=== PATIENT | female | born 1980 | race African-American/Black ===

== ENCOUNTER 2018-02-06 11:20 | Emergency (ER) | payer MEDICAID, OTHER ==
[~2018-02-06] VITALS: Ht 162.6 cm; Wt 77.0 kg
[~2018-02-06 11:20] MED LIST: BACT800T5 PO; GLYB1TAB51 PO; LISI-590 PO; METF-324 PO; ZOFR4TAB3 SL
[2018-02-06 11:35] VITALS: BP 133/86; PULSE 119; RESP 15; TEMP 99.1; O2SAT 98
[2018-02-06 13:12] VITALS: TEMP 102.2
--- NOTE | 2018-02-06 13:14 | RADRPT ---
EXAM DATE/TIME: 02/06/2018 12:44 [place] COMPARISON: No previous studies available for comparison. INDICATIONS : Chest pain from coughing after inhaling burning plastic fumes. MEDICAL HISTORY : None. SURGICAL HISTORY : None. ENCOUNTER: Initial ACUITY: 2 weeks PAIN SCORE: 4/10 LOCATION: Bilateral chest FINDINGS: PA and lateral views of the chest demonstrate the lungs to be symmetrically aerated without evidence of mass, infiltrate or effusion. The cardiomediastinal contours are unremarkable. Osseous structure s are intact with a mild S-shaped scoliosis of the thoracolumbar spine. CONCLUSION: No acute cardiopulmonary process. Lungs are clear. Juaquin Tran MD on February 06, 2018 at 13:05 Board Certified Radiologist. This report was verified electronically.
[2018-02-06] MEDS ORDERED: GLYB5TAB3 PO (13:17)
[2018-02-06] MEDS ORDERED: LISI10TA3 PO (13:17)
[2018-02-06] MEDS ORDERED: LOVA10TA PO (13:17)
[2018-02-06] MEDS ORDERED: METF500T PO (13:17)
[2018-02-06] MEDS ORDERED: ZITHTAB PO (13:21)
[2018-02-06] MEDS ORDERED: GUAISYP5 PO (13:21)
--- NOTE | 2018-02-06 13:21 | PD ---
HPI Chief Complaint: Cold / Flu Symptoms Time Seen by Provider: 13:10 Travel History International Travel<30 days: No Contact w/Intl Traveler<30days: No Traveled to known affect area: No History of Present Illness HPI Patient comes in complaining of runny nose, cough over the last 2 days, productive of yellowish sputum. And over the last night or so she has developed sore throat. Patient denies any fever rash headache neck pain chest pain back pain flank pain or abdominal pain. No known drug allergy Past medical history significant for diabetes, hypertension, and hypercholesterolemia. All of which are uncontrolled with medications PFSH Past Medical History Diabetes: Yes Patient Takes Glucophage: No Diminished Hearing: No ?: Not LMP: 01/2018 Past Surgical History Tonsillectomy: Yes Social History Alcohol Use: No Tobacco Use: No Substance Use: No Allergies-Medications (Allergen,Severity, Reaction): Coded Allergies: No Known Allergies (Unverified Adverse Reaction, Unknown, 02/06/18) Reported Meds & Prescriptions Reported Meds & Active Scripts Active Guaiatussin AC Liq (Guaifenesin-Codeine Liq) 100-10 Mg/5 Ml Syrp 10 Ml PO Q6H PRN Zithromax Z-Jake (Azithromycin) 250 Mg Dspk 250 Mg PO DIRECTED 500 MG (2 tabs) day 1, then 1 tab days 2-5. Reported Lovastatin 10 Mg Tab 10 Mg PO DAILY Glyburide 5 Mg Tab 5 Mg PO DAILY Take with meals at the same time each day Lisinopril 10 Mg Tab 10 Mg PO DAILY Metformin (Metformin HCl) 500 Mg Tab 500 Mg PO TIDPC Review of Systems General / Constitutional: No: Fever Eyes: No: Visual changes HENT: No: Headaches Cardiovascular: No: Chest Pain or Discomfort Respiratory: Positive: Cough Gastrointestinal: No: Abdominal Pain Genitourinary: No: Dysuria Musculoskeletal: No: Pain Skin: No Rash Neurologic: No: Weakness Psychiatric: No: Depression Endocrine: No: Polydipsia Hematologic/Lymphatic: No: Easy Bruising Physical Exam Narrative GENERAL: SKIN: Warm and dry. HEAD: Atraumatic. Normocephalic. EYES: Pupils equal and round. No scleral icterus. No injection or drainage. ENT: No nasal bleeding or discharge. Mucous membranes pink and moist. NECK: Trachea midline. No JVD. CARDIOVASCULAR: Regular rate and rhythm. RESPIRATORY: No accessory muscle use. scattered ronchi appreciated with excellent tidal volume GASTROINTESTINAL: Abdomen soft, non-tender, nondistended. MUSCULOSKELETAL: Extremities without clubbing, cyanosis, or edema. No obvious deformities. NEUROLOGICAL: Awake and alert. No obvious cranial nerve deficits. Motor grossly within normal limits. Five out of 5 muscle strength in the arms and legs. Normal speech. PSYCHIATRIC: Appropriate mood and affect; insight and judgment normal. Data Data Last Documented VS Vital Signs Date Time Temp Pulse Resp B/P (MAP) Pulse Ox O2 Delivery O2 Flow Rate FiO2 02/06/18 13:12 102.2 02/06/18 11:35 119 15 133/86 (102) 98 Orders Orders Group A Rapid Strep Screen (02/06/18 11:38) Chest, Pa & Lat (02/06/18 11:38) Strep Culture (Group A) (02/06/18 11:49) MDM Medical Decision Making Medical Screen Exam Complete: Yes Emergency Medical Condition: Yes Medical Record Reviewed: Yes Differential Diagnosis Strep versus bronchitis versus pneumonia Narrative Course Strep test is negative Chest x-ray is negative for any consolidation consistent with pneumonia Diagnosis Primary Impression: Acute bronchitis Patient Instructions: Acute Bronchitis (ED), General Instructions Scripts Guaifenesin-Codeine Liq (Guaiatussin AC Liq) 100-10 Mg/5 Ml Syrp 10 ML PO Q6H Y for cough, #180 ML Prov: Clemente Thibodeaux MD 02/06/18 Azithromycin (Zithromax Z-Jake) 250 Mg Dspk 250 MG PO DIRECTED for Infection, #1 DSPK 0 Refills 500 MG (2 tabs) day 1, then 1 tab days 2-5. Prov: Clemente Thibodeaux MD 02/06/18 Disposition: 01 DISCHARGE HOME Condition: Stable Clemente Thibodeaux MD Feb 06, 2018 13:21
[2018-02-06] MEDS ORDERED: IBUPROFEN SUSP 100 MG/5 ML UDC PO ONE (13:30)
[2018-02-06] MEDS ORDERED: CHLORPHENIR/HYDROCOD LIQUID 8 MG/10 MG/5 ML CUP PO ONE (13:30)
== END 2018-02-06 14:06 | disposition home or self-care (01) ==
LOC: NEPD 11:20
DX: J20.9 Acute bronchitis, unspecified (principal); E11.9 Type 2 diabetes mellitus without complications; I10 Essential (primary) hypertension; Z79.84 Long term (current) use of oral hypoglycemic drugs
CPT/HCPCS: 71046; 87081; 87880; 99283